=== PATIENT | female | born 1945 | race Caucasian/White ===

== ENCOUNTER → 2016-07-24 | Outpatient (CLI) | payer MEDICARE, OTHER ==
[~2016-07-24] MED LIST: CALTRATE-600 W600 MG PO; CETIRIZINE HCL PO; DOCUSATE100 MG PO; EQUATE ARTHRITIS PO; FISH OIL CONC1000 MG PO; FLONASE NASAL S16 GM NS; FLONASEALLERGY NS; GARLIC PO; GLUCOSAMINE/CHONDROI PO; LASIX 40MG TABL40 MG PO; LISINOPRIL10 MG PO; MASON NATURAL1200 MG PO; MIRAPEX0.5 MG PO; MONODOX100 PO; MULTIPLE VITAMI1 CAP PO; MVI; POTASSIUM GLUCONATE PO; PREMARIN 0.60.625 MG PO; PREVACID 30MG30 MG PO; SINGULAIR10 MG PO; VISION FORMULA; VITAMIN B1 PO; VITAMIN C500 MG PO; VITAMIN D31000 IU PO; VITAMIN E-400200 IU PO; XARELTO15 MG PO; ZYRTEC 10MG10 MG PO
== END ==
LOC: MC.RAD 14:38
DX: Z12.31 Encounter for screening mammogram for malignant neoplasm of breast (principal)

== ENCOUNTER → 2017-01-19 | Outpatient (CLI) | payer MEDICARE, OTHER ==
[2017-01-19 13:35] LABS: HEMOGLOBIN 13.4 g/dl (12.5-16.0)
[2017-01-19 14:00] LABS: HEMATOCRIT 39.3 % (37.0-47.0)
== END ==
LOC: COL.LAB 09:10
PROVIDERS: Internal Medicine Gastroenterology
DX: E83.110 Hereditary hemochromatosis (principal)

== ENCOUNTER → 2017-02-24 | Outpatient (CLI) | payer MEDICARE, OTHER ==
[2017-02-24 10:26] LABS: HEMATOCRIT 41.1 % (37.0-47.0)
== END ==
LOC: COL.LAB 09:48
PROVIDERS: Internal Medicine Gastroenterology
DX: E83.110 Hereditary hemochromatosis (principal)

== ENCOUNTER → 2017-09-14 | Outpatient (CLI) | payer MEDICARE, OTHER | LOC: MC.RAD 08-13 14:00 | DX: Z12.31 Encounter for screening mammogram for malignant neoplasm of breast (principal) ==

== ENCOUNTER → 2018-10-06 | Outpatient (CLI) | payer MEDICARE, OTHER | LOC: MC.RAD 13:14 | DX: Z12.31 Encounter for screening mammogram for malignant neoplasm of breast (principal) ==

== ENCOUNTER → 2019-11-07 | Outpatient (CLI) | payer MEDICARE, OTHER | LOC: MC.RAD 10-09 09:45 | DX: Z12.31 Encounter for screening mammogram for malignant neoplasm of breast (principal) ==

== ENCOUNTER 2020-02-10 18:17 | Emergency (ER) | payer MEDICARE, OTHER ==
[~2020-02-10] VITALS: Ht 165.1 cm; Wt 86.4 kg
[2020-02-10 20:57] LABS: BASO # 0.1 (0.0-0.2); BASO % 1.2 % (0.0-2.0); EOS # 0.5 (0.0-0.7); EOS % 8.7 % (0-4.0); GRAN # 2.4 (1.4-6.5); GRAN % 43.1 % (42.2-75.2); HEMATOCRIT 39.5 % (37.0-47.0); HEMOGLOBIN 13.3 g/dl (12.5-16.0); LYMPH # 2.2 (1.2-3.4); LYMPH % 39.1 % (20.0-51.0); MEAN CELL VOLUME 100 fl (80.0-100.0); MEAN CORPUSCULAR HEMOGLOBIN 34 pg (27.0-31.0); MEAN CORPUSCULAR HGB CONC 34 g/dl (33.0-37.0); MEAN PLATELET VOLUME 9.8 fl (7.4-10.4); MONO # 0.4 (0.1-0.6); MONO % 7.7 % (1.7-9.3); PLATELET COUNT 170 K/mm3 (130-400); RED BLOOD COUNT 3.97 M/mm3 (4.10-5.30); REDCELL DISTRIBUTION WIDTH-CV 12.5 % (11.5-14.5)
[2020-02-10 21:12] LABS: BILIRUBIN,TOTAL 0.4 mg/dL (0.0-1.0); CALCIUM 9.2 mg/dL (8.4-10.2); CREATININE, serum 1.04 (0.52-1.25); TOTAL PROTEIN 7.1 gm/dL (6.4-8.2)
[2020-02-10 22:38] VITALS: BP 122/74; PULSE 67; TEMP 98.2
== END 2020-02-10 22:40 | disposition home or self-care (01) ==
LOC: COL.ER 18:17
PROVIDERS: Nurse Practitioner Primary Care
DX: M79.662 Pain in left lower leg (principal); Z86.718 Personal history of other venous thrombosis and embolism

== ENCOUNTER 2020-02-12 13:26 | Emergency (ER) | payer MEDICARE, OTHER ==
[~2020-02-12] VITALS: Ht 165.1 cm; Wt 86.4 kg
[2020-02-12 13:31] VITALS: BP 139/84; TEMP 98.2
[2020-02-12 15:44] VITALS: PULSE 56
== END 2020-02-12 15:40 | disposition home or self-care (01) ==
LOC: COL.ER 13:26
DX: M79.662 Pain in left lower leg (principal); I10 Essential (primary) hypertension; Z86.718 Personal history of other venous thrombosis and embolism

== ENCOUNTER → 2020-11-11 | Outpatient (CLI) | payer MEDICARE, OTHER | LOC: MC.RAD 13:02 | DX: Z12.31 Encounter for screening mammogram for malignant neoplasm of breast (principal) ==

== ENCOUNTER 2021-07-12 13:13 | Emergency (ER) | payer MEDICARE, OTHER ==
[~2021-07-12] VITALS: Ht 162.6 cm; Wt 88.6 kg
[2021-07-12 13:35] VITALS: TEMP 98.1
[2021-07-12 14:39] LABS: BASO # 0.1 K/mm3 (0.0-0.2); BASO % 0.9 % (0.0-2.0); EOS # 0.3 K/mm3 (0.0-0.7); EOS % 5.7 % (0.0-4.0); GRAN # 3.4 K/mm3 (1.4-6.5); HEMATOCRIT 38.4 % (37.0-47.0); HEMOGLOBIN 12.5 g/dl (12.5-16.0); LYMPH # 1.6 K/mm3 (1.2-3.4); MEAN CELL VOLUME 94 fl (80.0-100.0); MEAN CORPUSCULAR HEMOGLOBIN 31 pg (27-31); MEAN CORPUSCULAR HGB CONC 33 g/dl (33.0-37.0); MEAN PLATELET VOLUME 9.6 fl (7.4-10.4); MONO # 0.4 K/mm3 (0.1-0.6); MONO % 7.1 % (1.7-9.3); PLATELET COUNT 173 K/mm3 (130-400); RED BLOOD COUNT 4.08 M/mm3 (4.10-5.30); REDCELL DISTRIBUTION WIDTH-CV 14.6 % (11.5-14.5)
[2021-07-12 15:08] LABS: ALBUMIN 3.5 gm/dL (3.4-4.8); BILIRUBIN,TOTAL 0.4 mg/dL (0.2-1.2); CALCIUM 9.1 mg/dL (8.4-10.2); CREATININE, serum 0.93 mg/dL (0.57-1.11); POTASSIUM 4.2 mmol/L (3.5-4.5); TOTAL PROTEIN 6.7 gm/dL (6.2-8.1)
[2021-07-12 15:45] VITALS: BP 128/85; PULSE 59
== END 2021-07-12 15:45 | disposition home or self-care (01) ==
LOC: COL.ER 13:13
PROVIDERS: Personal Emergency Response Attendant
DX: R20.2 Paresthesia of skin (principal); J44.9 Chronic obstructive pulmonary disease, unspecified; Z79.82 Long term (current) use of aspirin; Z79.899 Other long term (current) drug therapy

== ENCOUNTER → 2021-12-05 | Outpatient (CLI) | payer MEDICARE, OTHER | LOC: MC.RAD 09:58 | DX: Z12.31 Encounter for screening mammogram for malignant neoplasm of breast (principal) ==

== ENCOUNTER → 2023-12-22 | Outpatient (CLI) | payer MEDICARE, BC ==
[~2023-12-22] MED LIST changes: +AMOXICILLIN 8751 TAB PO; +PRINIVIL5 MG PO; +ZOCOR 10MG10 MG PO
== END ==
LOC: COL.LAB 14:45
DX: I83.893 Varicose veins of bilateral lower extremities with other complications (principal)

== ENCOUNTER → 2024-04-05 | Outpatient (CLI) | payer MEDICARE, BC | LOC: MC.RAD 14:04 | DX: Z12.31 Encounter for screening mammogram for malignant neoplasm of breast (principal) ==